=== PATIENT | male | born 1955 | race Caucasian/White ===

== ENCOUNTER 2016-08-22 08:28 | Emergency (ER) | payer MEDICARE ==
[~2016-08-22] VITALS: Ht 172.7 cm; Wt 72.7 kg
[~2016-08-22 08:28] MED LIST: FISH OIL500 MG PO; NEXIUM40 MG PO; NORCO 325 MG-101 TAB PO; NORCO 325 MG-51 TAB PO; NORCO 325 MG-7.1 TAB; PEPCID 20MG TAB20 MG PO; PHENERGAN 25 TA25 MG PO; PRINIVIL20 MG PO; PROTONIX20 MG PO; SIMVASTATIN20 MG PO
[2016-08-22 08:30] VITALS: PULSE 74
[2016-08-22 09:20] LABS: BASO % 0.8 % (0.0-2.0); EOS % 0.4 % (0-4.0); GRAN # 3.3 (1.4-6.5); GRAN % 64.5 % (42.2-75.2); HEMATOCRIT 41.1 % (42.0-52.0); HEMOGLOBIN 14.4 g/dl (13.5-18.0); LYMPH # 1.4 (1.2-3.4); LYMPH % 26.7 % (20.0-51.0); MEAN CELL VOLUME 95 fl (80.0-100.0); MEAN CORPUSCULAR HEMOGLOBIN 33 pg (27.0-31.0); MEAN CORPUSCULAR HGB CONC 35 g/dl (33.0-37.0); MEAN PLATELET VOLUME 8.6 fl (7.4-10.4); MONO # 0.4 (0.1-0.6); MONO % 7.2 % (1.7-9.3); PLATELET COUNT 231 K/mm3 (130-400); RED BLOOD COUNT 4.33 M/mm3 (4.20-5.60); REDCELL DISTRIBUTION WIDTH-CV 11.9 % (11.5-14.5); WHITE BLOOD COUNT 5.2 K/mm3 (4.8-10.8)
[2016-08-22 09:27] LABS: ADJUSTED CALCIUM 9.3 mg/dL (8.4-10.2); ALANINE AMINOTRANSFERASE 35 U/L (21-72); ALBUMIN 4.4 gm/dL (3.5-5.0); ALKALINE PHOSPHATASE 80 U/L (50-136); ANION GAP 14 mmol/L (7-16); BLOOD UREA NITROGEN 11 mg/dL (9-20); CALCIUM 9.6 mg/dL (8.4-10.2); CARBON DIOXIDE 22 mmol/L (22-30); CHLORIDE 100 mmol/L (98-107); GLUCOSE 85 mg/dL (74-106); LIPASE 113 U/L (23-300); POTASSIUM 3.9 mmol/L (3.4-5.0); SODIUM 137 mmol/L (137-145); TOTAL PROTEIN 7.2 gm/dL (6.4-8.2)
[2016-08-22 09:39] LABS: B-TYPE NATRIURETIC PEPTIDE 114 pg/mL (0-125); TROPONIN-I < 0.012 ng/mL (0.000-0.034)
[2016-08-22 10:57] VITALS: BP 165/97
== END 2016-08-22 10:58 | disposition home or self-care (01) ==
LOC: COL.ER 08:28
PROVIDERS: Emergency Medicine
DX: R07.9 Chest pain, unspecified (principal); I10 Essential (primary) hypertension; E78.5 Hyperlipidemia, unspecified
CPT/HCPCS: J7030

== ENCOUNTER → 2024-02-10 | Outpatient (CLI) | payer MEDICARE ==
[~2024-02-10] MED LIST changes: +ARICEPT10 MG PO; +BENTYL 10MG10 MG/CAP PO; +DULCOLAX STOOL100 MG PO; +LEADER CLE17 GM/Dose PO; +PROTONIX 40MG T40 MG PO; +ZOCOR 40MG40 MG PO
== END ==
LOC: COL.RAD 07:41
DX: M43.8X4 Other specified deforming dorsopathies, thoracic region (principal)